=== PATIENT | female | born 1960 | race Caucasian/White ===

== ENCOUNTER 2016-10-14 13:23 | Inpatient (IN) | payer OTHER ==
[~2016-10-14] VITALS: Ht 160 cm; Wt 77.6 kg
[~2016-10-14 13:23] MED LIST: ABILIFY10 MG PO; ABILIFY30 MG PO; ADDERALL; ADDERALL10 MG PO; ADDERALL7.5 MG PO; ADULT LOW DOSE81 M1 PO; AMBIEN10 MG PO; ASTELIN137 MCG/0. BOTH NARES; AZITHROMYCIN250 MG1 PO; BUPROPION HCL150 M2 PO; BUSPAR30 MG PO; BUTALB-APAP-CA1 EACH PO; CENTRUM SILVER1 EAC3 PO; CENTRUM TABLET1 EACH PO; CLONAZEPAM0.5 MG PO; CYMBALTA30 MG PO; DESYREL300 MG PO; FANAPT2 MG PO; FENTANYL; FISH OIL SOFTG1 EACH PO; FISH OIL300 MG PO; FLAGYL500 MG PO; FLAX SEED OIL1 EACH PO; FLEXERIL10 MG PO; FLEXERIL5 MG PO; GABAPENTIN300 MG PO; GLIMEPIRIDE2 MG PO; INVOKANA300 MG PO; JANUMET 50/11 TABLET PO; KLONOPIN0.5 M1 PO; KLONOPIN1 MG PO; LAMICTAL25 MG PO; LEVOFLOXACIN500 MG PO; LITHIUM; LITHIUM CARBON150 MG PO; LITHIUM CARBON300 M1 PO; LITHIUM CARBON300 MG PO; LITHIUM CARBON600 MG PO; METFORMIN; METFORMIN HCL1000 MG PO; METFORMIN HCL500 MG PO; NABUMETONE750 MG PO; NITROSTAT0.4 MG SL; PANTOPRAZOLE SO40 MG PO; PREMPRO 0.451 TABLET PO; PRILOSEC20 MG PO; PRISTIQ100 MG PO; PRISTIQ50 MG PO; PROAIR HFA8.5 GM IH; RYBIX ODT50 MG PO; SEROQUEL XR300 MG PO; SEROQUEL300 MG PO; SIMVASTATIN40 MG PO; SYMBICORT60 INHALAT IH; TIZANIDINE HCL4 M1 PO; TRAMADOL HCL50 MG PO; TRAZODONE HCL300 MG PO; TRAZODONE HCL50 MG PO; TRICOR145 MG PO; TRILIPIX45 MG PO; TUDORZA PRESS400 MCG IH; ULTRAM50 MG PO; VIBRAMYCIN100 MG PO; ZITHROMAX Z-PA250 MG PO; ZOLOFT100 MG PO; [UNRECOGNIZED DRUG - REMARK] PO; [UNRECOGNIZED DRUG - REMARK] PO
[2016-10-14 14:12] LABS: HEMATOCRIT 44.6 % (36.0-46.0); MCH 28.9 PG (29.0-34.0); MCHC 33.6 G/DL (30.0-36.0); MCV 85.9 FL (83-99); MEAN PLAT.VOLUME 9.8 uM^3 (9.5-12.4); PLATELET COUNT 341 K/uL (156-360); RBC DIS.WIDTH-CV 13.2 % (11.8-14.6); RBC DIS.WIDTH-SD 41.6 % (39-53); RED BLOOD COUNT 5.19 M/uL (3.80-5.20); WHITE BLOOD COUNT 15.4 K/uL (4.1-10.2)
[2016-10-14 14:20] LABS: CHLORIDE 106 mEq/L (99-109); POTASSIUM 4.3 mEq/L (3.7-5.4); SODIUM 137 mEq/L (136-147)
[2016-10-14 14:22] LABS: GLUCOSE 159 mg/dL (70-99)
[2016-10-14 14:23] LABS: ANION GAP 12 MEQ/L (2-14)
[2016-10-14 14:25] LABS: SERUM ETHYL ALCOHOL < 10 mg/dL
[2016-10-14 14:26] LABS: GFR ESTIMATE (CALCULATED) > 59 mL/min/
[2016-10-14 14:27] LABS: UREA NITROGEN (BUN) 12 mg/dL (9-23)
[2016-10-14 14:45] LABS: AMPHETAMINE NEGATIVE (500 ng/mL); BARBITURATES NEGATIVE (200 ng/mL); BENZODIAZEPINES NEGATIVE (150 ng/mL); COCAINE NEGATIVE (150 ng/mL); INTERNAL CONTROLS VALID? YES; METHADONE NEGATIVE (200 ng/mL); METHAMPHETAMINE NEGATIVE (500 ng/mL); OPIATES (MORPHINE) NEGATIVE (100 ng/mL); OXYCODONE NEGATIVE (100 ng/mL); PHENCYCLIDINE NEGATIVE (25 ng/mL); PROPOXYPHENE NEGATIVE (300 ng/mL); THC CANNABINOIDS NEGATIVE (50 ng/mL); TRICYCLIC ANTIDEPRESSANTS NEGATIVE (300 ng/mL)
[2016-10-14 15:09] LABS: SALICYLATE < 5.0 MG/DL (15-30)
[2016-10-14 16:18] LABS: ADD MIUA? YES; BILIRUBIN NEGATIVE; BLOOD NEGATIVE; COLOR YELLOW ((YELLOW)); GLUCOSE (STRIP) NEGATIVE; KETONES NEGATIVE; LEUKOCYTES NEGATIVE; NITRITE NEGATIVE; PROTEIN (STRIP) NEGATIVE; SPECIFIC GRAVITY 1.008 (1.000-1.030); UROBILINOGEN 0.2 MG/DL (0.2-1.0)
[2016-10-14 16:21] LABS: BACTERIA RARE /HPF; EPITHELIAL CELLS RARE /HPF; MUCUS NONE SEEN /LPF; RED BLOOD CELLS 0-5 /HPF (0-5); WHITE BLOOD CELLS 0-5 /HPF (0-5)
[2016-10-14] MEDS ORDERED: WELLBUTRIN75 MG PO (17:18)
[2016-10-14 17:19] VITALS: BP 137/82
[2016-10-14] MEDS ORDERED: MIRTAZAPINE15 MG PO (17:19)
[2016-10-14] MEDS ORDERED: TRAMADOL HCL50 MG PO (17:20)
[2016-10-14] MEDS ORDERED: FLUOXETINE HCL20 M1 PO (17:20)
[2016-10-14] MEDS ORDERED: SIMVASTATIN20 MG PO (17:21)
[2016-10-14 17:25] VITALS: BP 137/82
[2016-10-15 07:45] VITALS: BP 90/58
[2016-10-15 16:12] VITALS: BP 123/67
[2016-10-16 08:01] VITALS: BP 114/63
== END 2016-10-16 12:42 | disposition home or self-care (01) | DRG 885 ==
LOC: EME 13:23 → EDOF 16:38 → 1WEST 16:38
PROVIDERS: Emergency Medicine
DX: F31.31 Bipolar disorder, current episode depressed, mild (principal); R45.851 Suicidal ideations; M12.9 Arthropathy, unspecified; E11.9 Type 2 diabetes mellitus without complications; F60.9 Personality disorder, unspecified; G43.909 Migraine, unspecified, not intractable, without status migrainosus; J44.9 Chronic obstructive pulmonary disease, unspecified; Z88.0 Allergy status to penicillin; Z83.3 Family history of diabetes mellitus; Z81.8 Family history of other mental and behavioral disorders; Z60.2 Problems related to living alone
CPT/HCPCS: 80048; 81003; 85027; 90839; 94640; 94640 76; 97150 GO; 97165 GO; 99281; 99285; G0480

== ENCOUNTER 2016-10-18 11:55 | Emergency (ER) | payer OTHER ==
[~2016-10-18] VITALS: Ht 160 cm; Wt 78.4 kg
[~2016-10-18 11:55] MED LIST changes: +FLUOXETINE HCL20 M1 PO; +MIRTAZAPINE15 MG PO; +SIMVASTATIN20 MG PO; +WELLBUTRIN75 MG PO
[2016-10-18 13:46] LABS: HEMATOCRIT 42.6 % (36.0-46.0); MCH 28.8 PG (29.0-34.0); MCHC 33.1 G/DL (30.0-36.0); MCV 87.1 FL (83-99); MEAN PLAT.VOLUME 9.9 uM^3 (9.5-12.4); PLATELET COUNT 309 K/uL (156-360); RBC DIS.WIDTH-CV 13.2 % (11.8-14.6); RBC DIS.WIDTH-SD 42.3 % (39-53); RED BLOOD COUNT 4.89 M/uL (3.80-5.20); WHITE BLOOD COUNT 12.7 K/uL (4.1-10.2)
[2016-10-18 13:54] LABS: CHLORIDE 109 mEq/L (99-109); POTASSIUM 4.1 mEq/L (3.7-5.4); SODIUM 140 mEq/L (136-147)
[2016-10-18 13:56] LABS: GLUCOSE 144 mg/dL (70-99)
[2016-10-18 13:57] LABS: ANION GAP 14 MEQ/L (2-14)
[2016-10-18 13:59] LABS: SERUM ETHYL ALCOHOL < 10 mg/dL
[2016-10-18 14:00] LABS: GFR ESTIMATE (CALCULATED) > 59 mL/min/
[2016-10-18 14:01] LABS: UREA NITROGEN (BUN) 7 mg/dL (9-23)
[2016-10-18 16:01] VITALS: BP 131/95
== END 2016-10-18 16:10 | disposition home or self-care (01) ==
LOC: EME 11:55
DX: F41.9 Anxiety disorder, unspecified (principal); F32.9 Major depressive disorder, single episode, unspecified; E78.5 Hyperlipidemia, unspecified; E11.9 Type 2 diabetes mellitus without complications; J44.9 Chronic obstructive pulmonary disease, unspecified; G89.29 Other chronic pain; Z79.891 Long term (current) use of opiate analgesic; F17.200 Nicotine dependence, unspecified, uncomplicated
CPT/HCPCS: 80048; 85027; 90832; 99281; 99284; G0480

== ENCOUNTER 2016-10-21 08:09 | Inpatient (IN) | payer OTHER ==
[~2016-10-21] VITALS: Ht 160 cm; Wt 77.9 kg
[2016-10-21 08:41] LABS: HEMATOCRIT 44.8 % (36.0-46.0); MCH 28.8 PG (29.0-34.0); MCHC 33.3 G/DL (30.0-36.0); MCV 86.7 FL (83-99); MEAN PLAT.VOLUME 10.1 uM^3 (9.5-12.4); PLATELET COUNT 342 K/uL (156-360); RBC DIS.WIDTH-CV 13.1 % (11.8-14.6); RBC DIS.WIDTH-SD 41.2 % (39-53); RED BLOOD COUNT 5.17 M/uL (3.80-5.20)
[2016-10-21 08:56] LABS: CHLORIDE 107 mEq/L (99-109); POTASSIUM 4.3 mEq/L (3.7-5.4); SODIUM 140 mEq/L (136-147)
[2016-10-21 08:58] LABS: GLUCOSE 168 mg/dL (70-99)
[2016-10-21 08:59] LABS: ANION GAP 11 MEQ/L (2-14)
[2016-10-21 09:01] LABS: SERUM ETHYL ALCOHOL < 10 mg/dL
[2016-10-21 09:02] LABS: GFR ESTIMATE (CALCULATED) > 59 mL/min/
[2016-10-21 09:03] LABS: UREA NITROGEN (BUN) 9 mg/dL (9-23)
[2016-10-21 09:11] LABS: AMPHETAMINE NEGATIVE (500 ng/mL); BARBITURATES NEGATIVE (200 ng/mL); BENZODIAZEPINES NEGATIVE (150 ng/mL); COCAINE NEGATIVE (150 ng/mL); INTERNAL CONTROLS VALID? YES; METHADONE NEGATIVE (200 ng/mL); METHAMPHETAMINE NEGATIVE (500 ng/mL); OPIATES (MORPHINE) NEGATIVE (100 ng/mL); OXYCODONE NEGATIVE (100 ng/mL); PHENCYCLIDINE NEGATIVE (25 ng/mL); PROPOXYPHENE NEGATIVE (300 ng/mL); THC CANNABINOIDS NEGATIVE (50 ng/mL); TRICYCLIC ANTIDEPRESSANTS NEGATIVE (300 ng/mL)
[2016-10-21] MEDS ORDERED: CLONAZEPAM1 MG PO (10:58)
[2016-10-21 12:15] VITALS: BP 152/87
[2016-10-21 13:21] VITALS: BP 152/87
[2016-10-21 15:30] VITALS: BP 122/79
[2016-10-22 07:54] VITALS: BP 122/68
[2016-10-22 15:23] VITALS: BP 110/67
[2016-10-23 08:00] VITALS: BP 130/78
[2016-10-23 15:55] VITALS: BP 135/72
[2016-10-24 07:55] VITALS: BP 125/74
[2016-10-24] MEDS ORDERED: MIRTAZAPINE30 MG PO (11:05)
[2016-10-24] MEDS ORDERED: LITHIUM CARBON300 MG PO (11:05)
== END 2016-10-24 12:23 | disposition home or self-care (01) | DRG 885 ==
LOC: EME → EDBD 08:09 → EME 08:09 → EDOF 09:10 → 1WEST 09:10
PROVIDERS: Emergency Medicine
DX: F31.30 Bipolar disorder, current episode depressed, mild or moderate severity, unspecified (principal); E11.9 Type 2 diabetes mellitus without complications; J44.9 Chronic obstructive pulmonary disease, unspecified; M19.90 Unspecified osteoarthritis, unspecified site
CPT/HCPCS: 80048; 80178; 85027; 90837; 94640; 94640 76; 97150 GO; 97165 GO; 99281; 99284; G0480; Q0177

== ENCOUNTER 2016-10-26 13:17 | Emergency (ER) | payer OTHER ==
[~2016-10-26] VITALS: Ht 160 cm; Wt 78.1 kg
[~2016-10-26 13:17] MED LIST changes: +CLONAZEPAM1 MG PO; +MIRTAZAPINE30 MG PO
[2016-10-26 14:11] LABS: HEMATOCRIT 43.3 % (36.0-46.0); MCH 28.6 PG (29.0-34.0); MCHC 32.8 G/DL (30.0-36.0); MCV 87.3 FL (83-99); PLATELET COUNT 348 K/uL (156-360); RBC DIS.WIDTH-CV 13.2 % (11.8-14.6); RBC DIS.WIDTH-SD 41.9 % (39-53); RED BLOOD COUNT 4.96 M/uL (3.80-5.20); WHITE BLOOD COUNT 14.9 K/uL (4.1-10.2)
[2016-10-26 14:19] LABS: CHLORIDE 108 mEq/L (99-109); POTASSIUM 4.6 mEq/L (3.7-5.4); SODIUM 141 mEq/L (136-147)
[2016-10-26 14:20] LABS: GLUCOSE 121 mg/dL (70-99)
[2016-10-26 14:22] LABS: ANION GAP 10 MEQ/L (2-14)
[2016-10-26 14:24] LABS: GFR ESTIMATE (CALCULATED) > 59 mL/min/
[2016-10-26 14:25] LABS: UREA NITROGEN (BUN) 11 mg/dL (9-23)
[2016-10-26 14:30] LABS: TROP-I INTERPRETATION NEGATIVE; TROPONIN-I < 0.01 ng/mL (0.0-0.30)
[2016-10-26] MEDS ORDERED: GABAPENTIN300 MG PO (15:35)
[2016-10-26 17:08] LABS: TROP-I INTERPRETATION NEGATIVE; TROPONIN-I < 0.01 ng/mL (0.0-0.30)
[2016-10-26] MEDS ORDERED: ATARAX,VISTARIL50 MG PO (18:19)
[2016-10-26 20:00] VITALS: BP 121/68
== END 2016-10-26 18:50 | disposition home or self-care (01) ==
LOC: EME 13:17
PROVIDERS: Physician Assistant
DX: F41.9 Anxiety disorder, unspecified (principal); R07.9 Chest pain, unspecified; R03.0 Elevated blood-pressure reading, without diagnosis of hypertension; J44.9 Chronic obstructive pulmonary disease, unspecified; E78.5 Hyperlipidemia, unspecified; E11.9 Type 2 diabetes mellitus without complications; G89.29 Other chronic pain; Z79.891 Long term (current) use of opiate analgesic; F17.200 Nicotine dependence, unspecified, uncomplicated
CPT/HCPCS: 71020; 80048; 80178; 84484; 85027; 93005; 99281; 99285

== ENCOUNTER 2016-10-30 09:04 | Inpatient (IN) | payer OTHER ==
[~2016-10-30] VITALS: Ht 160 cm; Wt 78.1 kg
[~2016-10-30 09:04] MED LIST changes: +ATARAX,VISTARIL50 MG PO
[2016-10-30 10:11] LABS: BASOPHIL COUNT 0.1 K/uL (0-0.1); EOSINOPHIL (%) 0.2 % (0-5); HEMATOCRIT 41.9 % (36.0-46.0); IMMATURE GRANULOCYTE (%) 0.5 % (0.0-0.7); IMMATURE GRANULOCYTE COUNT 0.1 K/uL; INSTRUMENT ABS NEUTROPHIL CT 12.9 K/uL; MCH 28.9 PG (29.0-34.0); MCHC 33.2 G/DL (30.0-36.0); MCV 87.1 FL (83-99); MONOCYTE (%) 4.7 % (3-12); MONOCYTE COUNT 0.8 K/uL (0-0.8); NEUTROPHIL (%) 81.5 % (45-76); NEUTROPHIL COUNT 12.9 K/uL (1.8-6.4); PLATELET COUNT 309 K/uL (156-360); RBC DIS.WIDTH-CV 13.1 % (11.8-14.6); RBC DIS.WIDTH-SD 41.6 % (39-53); RED BLOOD COUNT 4.81 M/uL (3.80-5.20); WHITE BLOOD COUNT 15.9 K/uL (4.1-10.2)
[2016-10-30 10:17] LABS: AMPHETAMINE NEGATIVE (500 ng/mL); BARBITURATES NEGATIVE (200 ng/mL); BENZODIAZEPINES NEGATIVE (150 ng/mL); COCAINE NEGATIVE (150 ng/mL); INTERNAL CONTROLS VALID? YES; METHADONE NEGATIVE (200 ng/mL); METHAMPHETAMINE NEGATIVE (500 ng/mL); OPIATES (MORPHINE) NEGATIVE (100 ng/mL); OXYCODONE NEGATIVE (100 ng/mL); PHENCYCLIDINE NEGATIVE (25 ng/mL); PROPOXYPHENE NEGATIVE (300 ng/mL); THC CANNABINOIDS NEGATIVE (50 ng/mL); TRICYCLIC ANTIDEPRESSANTS NEGATIVE (300 ng/mL)
[2016-10-30 10:35] LABS: CHLORIDE 106 mEq/L (99-109); SODIUM 135 mEq/L (136-147)
[2016-10-30 10:37] LABS: GLUCOSE 159 mg/dL (70-99)
[2016-10-30 10:38] LABS: ANION GAP 6 MEQ/L (2-14)
[2016-10-30 10:40] LABS: SERUM ETHYL ALCOHOL < 10 mg/dL
[2016-10-30 10:41] LABS: GFR ESTIMATE (CALCULATED) > 59 mL/min/
[2016-10-30 10:43] LABS: UREA NITROGEN (BUN) 10 mg/dL (9-23)
[2016-10-30 10:44] LABS: SALICYLATE < 5.0 MG/DL (15-30)
[2016-10-30 20:49] VITALS: BP 154/84
[2016-10-31 08:06] VITALS: BP 128/84
[2016-10-31 16:06] VITALS: BP 112/60
[2016-11-01 08:09] VITALS: BP 124/70
[2016-11-01 16:03] VITALS: BP 127/75
[2016-11-02 08:45] VITALS: BP 125/97
[2016-11-02 15:51] VITALS: BP 118/67
[2016-11-03 08:05] VITALS: BP 123/66
[2016-11-03 15:49] VITALS: BP 164/77
[2016-11-03 18:15] VITALS: BP 119/77
[2016-11-04 08:13] VITALS: BP 111/56
[2016-11-04 15:49] VITALS: BP 127/68
[2016-11-05 08:07] VITALS: BP 113/62
[2016-11-05 15:35] VITALS: BP 108/62
[2016-11-06 08:16] VITALS: BP 111/68
[2016-11-06 15:57] VITALS: BP 118/79
[2016-11-07 08:13] VITALS: BP 130/71
[2016-11-07 15:23] VITALS: BP 120/70
[2016-11-08 07:52] VITALS: BP 131/71
[2016-11-08 15:21] VITALS: BP 114/54
[2016-11-09 09:25] VITALS: BP 111/61
[2016-11-09 15:40] VITALS: BP 112/57
[2016-11-10 08:59] VITALS: BP 135/70
[2016-11-10] MEDS ORDERED: PROZAC10 MG PO (10:20)
[2016-11-10] MEDS ORDERED: DESYREL 150 MG150 MG PO (10:20)
[2016-11-10] MEDS ORDERED: BUPROPION XL150 MG PO (10:20)
== END 2016-11-10 11:02 | disposition home or self-care (01) | DRG 885 ==
LOC: EME 09:04 → 1WEST 17:54 → EDOF 17:54 → 1WEST 20:10
PROVIDERS: Emergency Medicine
DX: F31.4 Bipolar disorder, current episode depressed, severe, without psychotic features (principal); F60.9 Personality disorder, unspecified; R44.0 Auditory hallucinations; F99 Mental disorder, not otherwise specified; R45.851 Suicidal ideations; J43.9 Emphysema, unspecified; E11.9 Type 2 diabetes mellitus without complications; M19.90 Unspecified osteoarthritis, unspecified site; G43.909 Migraine, unspecified, not intractable, without status migrainosus; K59.00 Constipation, unspecified; R68.84 Jaw pain; Z88.0 Allergy status to penicillin; Z85.41 Personal history of malignant neoplasm of cervix uteri; Z81.8 Family history of other mental and behavioral disorders
CPT/HCPCS: 80048; 80178; 85025; 90839; 93005; 94640; 94640 76; 97150 GO; 97165 GO; 99281; 99285; G0480; J2060; J7030; Q0177

== ENCOUNTER 2017-10-04 11:03 | Emergency (ER) | payer OTHER ==
[~2017-10-04] VITALS: Ht 160 cm; Wt 80.5 kg
[~2017-10-04 11:03] MED LIST changes: +BUPROPION XL150 MG PO; +DESYREL 150 MG150 MG PO; +PROZAC10 MG PO
[2017-10-04 13:41] LABS: HEMATOCRIT 42.3 % (36.0-46.0); HEMOGLOBIN 14.4 G/DL (11.9-15.5); MCH 29.9 PG (29.0-34.0); MCV 87.9 FL (83-99); PLATELET COUNT 241 K/uL (156-360); RBC DIS.WIDTH-CV 12.8 % (11.8-14.6); RBC DIS.WIDTH-SD 40.7 % (39-53); RED BLOOD COUNT 4.81 M/uL (3.80-5.20); WHITE BLOOD COUNT 13.3 K/uL (4.1-10.2)
[2017-10-04 13:50] LABS: CHLORIDE 107 mEq/L (99-109); POTASSIUM 3.9 mEq/L (3.7-5.4); SODIUM 137 mEq/L (136-147)
[2017-10-04 13:51] LABS: GLUCOSE 240 mg/dL (70-99)
[2017-10-04 13:55] LABS: CREATININE 0.7 mg/dL (0.6-1.3); GFR ESTIMATE (CALCULATED) > 59 mL/min/
[2017-10-04 13:56] LABS: UREA NITROGEN (BUN) 8 mg/dL (9-23)
[2017-10-04 14:08] LABS: APPEARANCE SL.HAZY ((CLEAR)); BILIRUBIN NEGATIVE; BLOOD NEGATIVE; COLOR YELLOW ((YELLOW)); GLUCOSE (STRIP) NEGATIVE; KETONES NEGATIVE; LEUKOCYTES TRACE; NITRITE NEGATIVE; PROTEIN (STRIP) NEGATIVE; SPECIFIC GRAVITY 1.014 (1.000-1.030); UROBILINOGEN 0.2 MG/DL (0.2-1.0)
[2017-10-04 14:16] LABS: BACTERIA 1+ /HPF; CALCIUM OXALATE CRYSTALS 1+ /HPF; EPITHELIAL CELLS 4+ /HPF; MUCUS TRACE /LPF; RED BLOOD CELLS 0-5 /HPF (0-5); UCUL ADDED? YES
[2017-10-04 14:51] LABS: THYROTROPIN (TSH) 0.72 MIU/L (0.4-5.5)
[2017-10-04] MEDS ORDERED: BACTRIM,SEPT1 TABLET PO (15:30)
[2017-10-04 15:57] VITALS: BP 120/89
== END 2017-10-04 15:58 | disposition home or self-care (01) ==
LOC: EME 11:03
PROVIDERS: Nurse Practitioner Family
DX: N39.0 Urinary tract infection, site not specified (principal); E11.9 Type 2 diabetes mellitus without complications; J44.9 Chronic obstructive pulmonary disease, unspecified; I10 Essential (primary) hypertension; E78.5 Hyperlipidemia, unspecified; M19.90 Unspecified osteoarthritis, unspecified site; F41.9 Anxiety disorder, unspecified; F31.9 Bipolar disorder, unspecified; F32.9 Major depressive disorder, single episode, unspecified; F17.200 Nicotine dependence, unspecified, uncomplicated; Z79.84 Long term (current) use of oral hypoglycemic drugs; Z79.51 Long term (current) use of inhaled steroids; Z79.891 Long term (current) use of opiate analgesic; Z85.41 Personal history of malignant neoplasm of cervix uteri; Z91.5 Personal history of self-harm; Z88.0 Allergy status to penicillin; Z88.8 Allergy status to other drugs, medicaments and biological substances
CPT/HCPCS: 80048; 81003; 82948; 84443; 85027; 87086; 87502; 99281; 99284

== ENCOUNTER 2017-11-14 12:09 | Emergency (ER) | payer OTHER ==
[~2017-11-14] VITALS: Ht 160 cm; Wt 79.0 kg
[~2017-11-14 12:09] MED LIST changes: +BACTRIM,SEPT1 TABLET PO
[2017-11-14 12:48] LABS: HEMATOCRIT 47.8 % (36.0-46.0); HEMOGLOBIN 15.9 G/DL (11.9-15.5); MCH 29.3 PG (29.0-34.0); MCHC 33.3 G/DL (30.0-36.0); PLATELET COUNT 302 K/uL (156-360); RBC DIS.WIDTH-CV 12.6 % (11.8-14.6); RBC DIS.WIDTH-SD 40.7 % (39-53); RED BLOOD COUNT 5.43 M/uL (3.80-5.20); WHITE BLOOD COUNT 12.3 K/uL (4.1-10.2)
[2017-11-14 13:00] LABS: AMPHETAMINE NEGATIVE (500 ng/mL); BARBITURATES NEGATIVE (200 ng/mL); BENZODIAZEPINES NEGATIVE (150 ng/mL); BUPRENORPHINE NEGATIVE (10 ng/mL); COCAINE NEGATIVE (150 ng/mL); METHADONE NEGATIVE (200 ng/mL); METHAMPHETAMINE NEGATIVE (500 ng/mL); OPIATES (MORPHINE) NEGATIVE (100 ng/mL); OXYCODONE NEGATIVE (100 ng/mL); PHENCYCLIDINE NEGATIVE (25 ng/mL); PROPOXYPHENE NEGATIVE (300 ng/mL); THC CANNABINOIDS NEGATIVE (50 ng/mL); TRICYCLIC ANTIDEPRESSANTS NEGATIVE (300 ng/mL)
[2017-11-14 13:00] LABS: CHLORIDE 105 mEq/L (99-109)
[2017-11-14 13:01] LABS: POTASSIUM 4.2 mEq/L (3.7-5.4); SODIUM 140 mEq/L (136-147)
[2017-11-14 13:02] LABS: GLUCOSE 219 mg/dL (70-99)
[2017-11-14 13:05] LABS: SERUM ETHYL ALCOHOL < 10 mg/dL
[2017-11-14 13:06] LABS: CREATININE 0.8 mg/dL (0.6-1.3); GFR ESTIMATE (CALCULATED) > 59 mL/min/
[2017-11-14 13:07] LABS: UREA NITROGEN (BUN) 9 mg/dL (9-23)
[2017-11-14 13:28] LABS: ALBUMIN 4.7 g/dL (3.2-4.8)
[2017-11-14 13:31] LABS: TOTAL PROTEIN 7.8 g/dL (6.4-8.3)
[2017-11-14 13:33] LABS: TOTAL BILIRUBIN 0.4 mg/dL (0.0-1.0)
[2017-11-14 13:34] LABS: ALKALINE PHOSPHATASE 118 IU/L (3-129)
[2017-11-14 13:36] LABS: AST (GOT) 29 IU/L (2-34); DIRECT BILIRUBIN 0.2 mg/dL (0.0-0.3)
[2017-11-14 13:37] LABS: ALT (GPT) 39 IU/L (3-49); LIPASE 13 U/L (1.0-51.0)
[2017-11-14] MEDS ORDERED: BACTRIM,SEPT1 TABLET PO (14:08)
[2017-11-14 15:15] LABS: APPEARANCE CLEAR ((CLEAR)); BILIRUBIN NEGATIVE; BLOOD NEGATIVE; COLOR YELLOW ((YELLOW)); GLUCOSE (STRIP) NEGATIVE; KETONES NEGATIVE; LEUKOCYTES NEGATIVE; NITRITE NEGATIVE; PROTEIN (STRIP) NEGATIVE; SPECIFIC GRAVITY 1.014 (1.000-1.030); UCUL ADDED? NO; UROBILINOGEN 0.2 MG/DL (0.2-1.0)
[2017-11-14 15:43] VITALS: BP 126/80
== END 2017-11-14 15:46 | disposition home or self-care (01) ==
LOC: EME 12:09
PROVIDERS: Emergency Medicine Emergency Medical Services
DX: F32.9 Major depressive disorder, single episode, unspecified (principal); R10.9 Unspecified abdominal pain; E11.9 Type 2 diabetes mellitus without complications; Z79.84 Long term (current) use of oral hypoglycemic drugs; E78.5 Hyperlipidemia, unspecified; I10 Essential (primary) hypertension; J44.9 Chronic obstructive pulmonary disease, unspecified; F41.9 Anxiety disorder, unspecified; Z85.41 Personal history of malignant neoplasm of cervix uteri; Z88.0 Allergy status to penicillin; F17.200 Nicotine dependence, unspecified, uncomplicated
CPT/HCPCS: 80048; 80076; 81003; 83690; 85027; 99281; 99285; G0480

== ENCOUNTER 2017-11-16 14:12 | Emergency (ER) | payer OTHER ==
[~2017-11-16] VITALS: Ht 160 cm; Wt 79.2 kg
[2017-11-16 14:42] LABS: HEMATOCRIT 47.5 % (36.0-46.0); HEMOGLOBIN 16.3 G/DL (11.9-15.5); MCHC 34.3 G/DL (30.0-36.0); MCV 87.3 FL (83-99); PLATELET COUNT 315 K/uL (156-360); RBC DIS.WIDTH-CV 12.7 % (11.8-14.6); RBC DIS.WIDTH-SD 39.9 % (39-53); RED BLOOD COUNT 5.44 M/uL (3.80-5.20); WHITE BLOOD COUNT 15.3 K/uL (4.1-10.2)
[2017-11-16 14:52] LABS: CHLORIDE 103 mEq/L (99-109); POTASSIUM 4.3 mEq/L (3.7-5.4); SODIUM 140 mEq/L (136-147)
[2017-11-16 14:54] LABS: GLUCOSE 243 mg/dL (70-99)
[2017-11-16 14:57] LABS: CREATININE 0.8 mg/dL (0.6-1.3); GFR ESTIMATE (CALCULATED) > 59 mL/min/; SERUM ETHYL ALCOHOL < 10 mg/dL
[2017-11-16 14:58] LABS: UREA NITROGEN (BUN) 11 mg/dL (9-23)
[2017-11-16 15:06] LABS: AMPHETAMINE NEGATIVE (500 ng/mL); BARBITURATES NEGATIVE (200 ng/mL); BENZODIAZEPINES NEGATIVE (150 ng/mL); BUPRENORPHINE NEGATIVE (10 ng/mL); COCAINE NEGATIVE (150 ng/mL); METHADONE NEGATIVE (200 ng/mL); METHAMPHETAMINE NEGATIVE (500 ng/mL); OPIATES (MORPHINE) NEGATIVE (100 ng/mL); OXYCODONE NEGATIVE (100 ng/mL); PHENCYCLIDINE NEGATIVE (25 ng/mL); PROPOXYPHENE NEGATIVE (300 ng/mL); THC CANNABINOIDS NEGATIVE (50 ng/mL); TRICYCLIC ANTIDEPRESSANTS NEGATIVE (300 ng/mL)
[2017-11-16 23:41] VITALS: BP 121/70
== END 2017-11-16 23:42 ==
LOC: EME 14:12
DX: F31.32 Bipolar disorder, current episode depressed, moderate (principal); F41.9 Anxiety disorder, unspecified; J44.9 Chronic obstructive pulmonary disease, unspecified; E11.9 Type 2 diabetes mellitus without complications; Z79.84 Long term (current) use of oral hypoglycemic drugs; E78.5 Hyperlipidemia, unspecified; I10 Essential (primary) hypertension; F17.200 Nicotine dependence, unspecified, uncomplicated; Z85.41 Personal history of malignant neoplasm of cervix uteri; Z88.0 Allergy status to penicillin
CPT/HCPCS: 80048; 85027; 90837; 93005; 99281; 99285; G0480